=== PATIENT | male | born 1965 | race Caucasian/White ===

== ENCOUNTER 2019-08-06 13:36 | Inpatient (IN) | payer OTHER ==
[2019-08-06] MEDS ORDERED: SODIUM CHLORIDE 0.9% 1,000 ML IV STA (13:43)
[2019-08-06] MEDS ORDERED: HEPARIN SODIUM,PORCINE 5,000 UNIT/ML 1 ML VIAL IV STA (13:43)
--- NOTE | 2019-08-06 13:47 | ED ---
General Adult HPI - General Chief complaint: Chest Pain Stated complaint: Chest Pain Time Seen by Provider: 08/06/19 13:43 Source: patient, EMS Mode of arrival: EMS Limitations: no limitations - History of Present Illness Initial comments: Dictation was produced using [employer] dictation software. please excuse any grammatical, word or spelling errors. This patient was cared for during a federal and state declared state of emergency secondary to Covid 19 Chief Complaint: 54-year-old male presents with chest pain History of Present Illness: 54-year-old male past INR and a half prior to arrival he began experiencing substernal chest pressure. States that the pain radiated to his jaw. He didn't experience diaphoresis. Physical episodes of syncope. EMS was called and patient is brought to the emergency department. According to EMS EKG is consistent with ST segment elevation IN. Patient has a history of IN and cardiac arrest several years ago. He does not have any cardiac risk factors except or strong family history. Patient was given nitroglycerin by EMS with slight improvement of symptoms. Denies any sharp pressure. Denies any noticing paresthesias to the arms or legs. The ROS documented in this emergency department record has been reviewed and confirmed by me. Those systems with pertinent positive or negative responses have been documented in the HPI. All other systems are other negative and/or noncontributory. PHYSICAL EXAM: General Impression: Alert and oriented x3, acute distress secondary to pain HEENT: Normocephalic atraumatic, extra-ocular movements intact, pupils equal and reactive to light bilaterally, mucous membranes moist. Cardiovascular: Heart regular rate and rhythm Chest: Able to complete full sentences, no retractions, no tachypnea Abdomen: abdomen soft, non-tender, non-distended, no organomegaly Musculoskeletal: Pulses present and equal in all extremities, no peripheral edema Motor: no focal deficits noted Neurological: CN II-XII grossly intact, no focal motor or sensory deficits noted Skin: Intact with no visualized rashes, clammy Psych: Normal affect and mood ED course: 54-year-old male with chief complaint of chest pain. Prehospital EKG was reviewed by myself showing ST segment elevation IN inferiorly. Signs upon arrival shows heart rate of 101, pulse vital signs within acceptable limits. Code STEMI paged. Cardiology at bedside. Patient be admitted to Dr. Galeas who is on city call. 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 Interval to 22, QRS 90, QTC 414. ST segment elevation IN inferiorly with reciprocal changes in the high lateral leads and anterior precordial leads - Related Data Allergies Allergy/AdvReac Type Severity Reaction Status Date / Time Penicillins Allergy Swelling Verified 08/06/19 13:44 Review of Systems ROS Statement: Those systems with pertinent positive or pertinent negative responses have been documented in the HPI. ROS Other: All systems not noted in ROS Statement are negative. Past Medical History Past Medical History: Coronary Artery Disease (CAD), Myocardial Infarction (IN) History of Any Multi-Drug Resistant Organisms: None Reported Past Surgical History: Coronary Bypass/CABG, Heart Catheterization, Heart Catheterization With Stent Past Psychological History: No Psychological Hx Reported Smoking Status: Never smoker Past Alcohol Use History: Rare Past Drug Use History: None Reported General Exam Limitations: no limitations Course Vital Signs 08/06/19 13:37 Temperature 97.7 F Pulse Rate 101 H Respiratory 18 Rate Blood Pressure 129/95 O2 Sat by Pulse 100 Oximetry Disposition Clinical Impression: STEMI (ST elevation myocardial infarction) Disposition: ADMITTED IP TO THIS HOSP Condition: Critical Referrals: Nonstaff,Physician [Primary Care Provider] - 1-2 days Decision Time: 13:51
[2019-08-06] MEDS ORDERED: NALOXONE 0.4 MG/ML 1 ML VIAL IV PRN (13:51)
[2019-08-06] MEDS ORDERED: IV FLUID CONTINUATION 900 ML IV ONE (13:53)
[2019-08-06] MEDS ORDERED: MIDAZOLAM 2 MG/2 ML VIAL IVP ONE (13:59)
--- NOTE | 2019-08-06 14:00 | XR ---
EXAMINATION TYPE: XR chest 1V portable DATE OF EXAM: 08/06/2019 COMPARISON: NONE HISTORY: Chest pain today. TECHNIQUE: Single AP portable frontal semiupright view of the chest is obtained. FINDINGS: Overlying EKG leads. There is no focal air space opacity, pleural effusion, or pneumothorax seen. Overlying sternal wires and mediastinal clips along with epicardial pacer wires. The cardiac s ilhouette size is within normal limits. The osseous structures are intact. IMPRESSION: No acute process.
[2019-08-06] MEDS ORDERED: LIDOCAINE 1% INJ 10MG/ML (20 ML MDV) SQ ONE (14:01)
[2019-08-06 14:20] LABS: Basophils # (A) 0.1 k/uL (0-0.2); Basophils % (A) 1 %; Eosinophils # (A) 0.1 k/uL (0-0.7); Eosinophils % (A) 1 %; HCT 43.8 % (39.0-53.0); HGB 13.8 gm/dL (13.0-17.5); Lymphocytes # (A) 2.2 k/uL (1.0-4.8); Lymphocytes % (A) 16 %; MCH 27.1 pg (25.0-35.0); MCHC 31.5 g/dL (31.0-37.0); MCV 86.2 fL (80.0-100.0); Mean Platelet Volume 6.7; Monocytes # (A) 0.5 k/uL (0-1.0); Monocytes % (A) 4 %; Neutrophils # (A) 10.2 k/uL (1.3-7.7); Neutrophils % (A) 77 %; Platelet Count 405 k/uL (150-450); RBC 5.08 m/uL (4.30-5.90); RDW 13.3 % (11.5-15.5); WBC 13.3 k/uL (3.8-10.6)
[2019-08-06] MEDS ORDERED: fentaNYL (PF) 50 MCG/ML 2 ML AMP ONE (14:21)
[2019-08-06] MEDS ORDERED: fentaNYL (PF) 50 MCG/ML 2 ML AMP IVP ONE (14:22)
[2019-08-06] MEDS ORDERED: HEPARIN SODIUM 1,000 UN/ML (10ML VL) ONE ×2 (14:26→15:08)
[2019-08-06] MEDS: HEPARIN SODIUM 1,000 UN/ML (10ML VL) IV ONE ×2 (14:28→14:46)
[2019-08-06] MEDS ORDERED: TIROFIBAN BOLUS 12.5MG/250 ML BAG IV ONE (14:32)
[2019-08-06] MEDS ORDERED: TIROFIBAN 12.5MG-250ML NS 250 ML IV ONE (14:33)
[2019-08-06] MEDS ORDERED: CLOPIDOGREL 75 MG TAB ONE ×2 (14:36)
[2019-08-06 14:37] LABS: Partial Thromboplastin Time 22.7 sec (22.0-30.0); Prothrombin Time 10.6 sec (9.0-12.0)
[2019-08-06 14:39] LABS: ALT 24 U/L (4-49); AST 36 U/L (17-59); African American GFR (CKD) >90 (>60 ml/min/1.73 sqM); Alkaline Phosphatase 80 U/L (38-126); Anion Gap 14 mmol/L; Blood Urea Nitrogen 19 mg/dL (9-20); Calcium 9.9 mg/dL (8.4-10.2); Carbon Dioxide 16 mmol/L (22-30); Chloride 107 mmol/L (98-107); Glucose 176 mg/dL (74-99); Non-African American GFR(CKD) 81 (>60 ml/min/1.73 sqM); Potassium 4.7 mmol/L (3.5-5.1); Sodium 137 mmol/L (137-145); Total Bilirubin 0.6 mg/dL (0.2-1.3); Total Protein 7.7 g/dL (6.3-8.2)
[2019-08-06] MEDS ORDERED: SODIUM CHLORIDE 0.9% 1,000 ML IV ONE ×2 (14:40→14:43)
[2019-08-06] MEDS ORDERED: CLOPIDOGREL 75 MG TAB PO ONE (14:41)
[2019-08-06] MEDS ORDERED: DOPamine DRIP 800 MG in DEXTROSE/WATER 1 250ML.BAG IV ONE (14:43)
[2019-08-06] MEDS ORDERED: HYDROmorphone 1 MG/ML 1 ML SYRINGE ONE (14:45)
[2019-08-06] MEDS ORDERED: HYDROmorphone 1 MG/ML 1 ML SYRINGE IVP ONE (14:46)
[2019-08-06] MEDS ORDERED: IOPAMIDOL-370 125ML BTL INJ ONE (14:53)
[2019-08-06] MEDS ORDERED: NITROGLYCERIN 1000MCG/10ML SYRINGE INTRACORON ONE (14:58)
[2019-08-06] MEDS ORDERED: IOPAMIDOL-370 100ML BTL INJ ONE (15:02)
[2019-08-06 15:26] LABS: Glucose,Whole Blood 120 mg/dL (75-99)
[2019-08-06] MEDS ORDERED: TIROFIBAN 12.5MG-250ML NS 250 ML IV SCH (15:45)
[2019-08-06] MEDS: HEPARIN SOD,PORK IN 0.45% NACL 25,000 UNIT in 0.45% NACL 1 250ML.BAG IV SCH (16:21)
[2019-08-06] MEDS: SODIUM CHLORIDE 0.9% 1,000 ML IV SCH (16:28)
[2019-08-06] MEDS ORDERED: ATROPINE SULFATE 0.1 MG/ML 10ML SYRINGE ONE (17:46)
--- NOTE | 2019-08-06 18:37 | CONS ---
CONSULTATION CHIEF COMPLAINT: Sudden onset chest pain. Mr. 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 He came to the ER where his EKG showed acute ST-segment elevation in the inferior leads with ST-segment depression in the precordial leads suggestive of an acute inferoposterior wall myocardial infarction. I evaluated him in the ER and advised him to undergo emergent cardiac catheterization with a view to performing angioplasty. He was explained of risks, benefits. PAST MEDICAL HISTORY: Significant for CAD, status post CABG, psoriasis. MEDICATIONS: He is on Otezla. ALLERGIES: Denies any. FAMILY HISTORY: Negative for premature coronary artery disease. SOCIAL HISTORY: Denies smoking or ETOH abuse. REVIEW OF SYSTEMS: HEENT is unremarkable. CARDIAC as described above. RESPIRATORY as described above. GI negative. negative. ENDOCRINE negative. ALLERGY: Negative. SKIN significant for psoriasis. MUSCULOSKELETAL negative. ENDOCRINE negative. DERM: Negative. CONSTITUTIONAL: Negative. ONCOLOGICAL: Negative MILLWRIGHT negative. Rest of the system review is not relevant. EXAM: Comfortable at rest. Vital signs are stable. There is no jugular venous distention. Carotid upstroke is normal. There is no bruit. Chest exam reveals good air entry bilaterally. Heart exam reveals first and second heart sounds. No gallop. No murmur. Abdomen is soft, nontender. Exam of extremities did not reveal any edema. Peripheral pulses are felt. MILLWRIGHT exam did not reveal focal neurological deficits. Labs are pending. ASSESSMENT: 1. Acute inferior posterior wall myocardial infarction. 2. Coronary artery disease, status post coronary artery bypass grafting. PLAN: Patient will undergo emergent cardiac catheterization with a view to performing angioplasty. MMODL / IJN: [id number] /
--- NOTE | 2019-08-06 18:52 | CC ---
CARDIAC CATHETERIZATION REPORT INDICATION: Acute inferior wall myocardial infarction. PROCEDURE NOTE: After obtaining informed consent, left heart catheterization, coronary angiogram, selective injection of the GIRON was performed via the right femoral artery. The patient tolerated the procedure well without any obvious immediate complications. The patient was intermittently developing high-grade AV block prior to catheterization but was hemodynamically stable throughout. FINDINGS: HEMODYNAMICS: Left ventricular end-diastolic pressure was 12 mm. There is no significant gradient across the aortic valve. LEFT VENTRICULOGRAM: Left ventriculogram is not performed. ANGIOGRAPHIC DATA: LEFT MAIN CORONARY ARTERY: Left main coronary artery is a normal-sized vessel and is free of stenosis. Divides into left anterior descending coronary artery and circumflex coronary artery. LEFT ANTERIOR DESCENDING CORONARY ARTERY: LAD is chronically occluded in its midportion. The diagonal branch shows a 70-80 percent ostial stenosis. CIRCUMFLEX CORONARY ARTERY: Circumflex coronary artery gives off a high OM branch that has a 70% to 80% stenosis in the proximal part. RIGHT CORONARY ARTERY: Right coronary artery is totally occluded distally just past the previously stented segment. SELECTIVE INJECTION OF THE GIRON: GIRON to the LAD appears patent. Proximal distal anastomotic sites are free of disease and the [place] LAD is free of disease. CONCLUSIONS: 1. Acute occlusion of the right coronary artery just distal to the previously stented segment. 2. Patent GIRON to LAD. 3. Three-vessel coronary artery disease as described above. PLAN: Patient will undergo angioplasty of the right coronary artery. MMODL / IJN: [id number] /
--- NOTE | 2019-08-06 19:33 | PTCA ---
PERCUTANEOUSTRANS CORORONARY ANGIOGRAPHY DATE OF SERVICE: 08/06/2019. PROCEDURE PERFORMED: PTCA and stenting of a totally occluded mid RCA with drug-eluting stents performed in the setting of an acute inferior ST-elevation myocardial infarction with reperfusion accomplished within 55 minutes. PERFORMED BY: Dr. Kianna Tidwell. SEDATION: Moderate conscious sedation time was 37 minutes. Patient was administered Versed. Oxygen saturation, hemodynamics and EKG were monitored closely. CLINICAL INFORMATION: Mr. 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 He came in with an acute inferior SC, was seen by Dr. Silverio who performed the cardiac cath from right femoral approach. This gentleman had a previous bypass surgery and stenting of RCA. Stenting of RCA was performed in 2012. The bypass surgery details are unavailable. He underwent a cardiac cath which revealed total occlusion of the RCA just beyond the stented segment. The stent in the RCA was there from the proximal all the way to the midportion. The left system revealed significant stenosis involving the ramus of more than 80% which was a long stenosis starting from the ostium all the way distally. This was in the ramus intermedius. Circumflex was a small vessel. RCA is a dominant vessel. The LAD was totally occluded in the midportion and GIRON to LAD was patent. He was advised intervention of the RCA that was performed expeditiously. PROCEDURE NOTE: The existing 6-Sinhala introducer in the right femoral artery was used to perform procedure. I used a standard right Mabel guide catheter to cannulate the right coronary artery. A whisper wire with a straight tip was used to cross the lesion. I used a 2.5 caliber 15 mm trek balloon and I pre-dilated the total occlusion with improvement of angiographic appearance and flow. Patient had transient bradycardia. I started him on a small dose of dopamine. Following this, I tried to advance a 33 mm long 3.25 caliber Xience stent into the distal and mid RCA up to the bifurcation, but I could not advance the stent. I then used a 3.25 caliber 15 mm NC Trek balloon and dilated within the previous stent at the bend and then after this, I was able to advance a 33 mm long 3.25 caliber Xience stent. The distal end of the stent was deployed at the bifurcation of the RCA distally and the proximal end of the stent was just before the previously placed stent. In between the stented areas, I deployed another 3.25 caliber 8 mm Xience stent. The entire old stent was also dilated with a 3.25 caliber balloon. Excellent angiographic result without complication was achieved. Patient had chest pain and inferior ST elevation with inflations. He received 600 mg of Plavix and also received heparin and Aggrastat infusion. ACT was about 258. The sheath was sutured and he was sent to the room in a stable condition with the understanding the sheath will be pulled in 2 hours. Excellent results were achieved. No complications. 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 Results were discussed with the patient. No family was available. I will perform intervention of the ramus intermedius which is a significant disease and a more significant caliber and distribution vessel and this will be performed in 48 hours. Details of the findings and results were discussed with the patient and he was sent to the room in stable condition. MMODL / IJN: [id number] /
[2019-08-06] MEDS: METOPROLOL TARTRATE 12.5 MG TAB PO SCH (21:02)
[2019-08-06] MEDS: ATORVASTATIN 80 MG TAB PO SCH (21:02)
[2019-08-06] MEDS: FAMOTIDINE 20 MG TAB PO SCH (21:02)
[2019-08-06] MEDS: LISINOPRIL 2.5 MG TAB PO SCH (21:02)
[2019-08-07 05:52] LABS: Basophils % (A) 0 %; Eosinophils # (A) 0.1 k/uL (0-0.7); Eosinophils % (A) 1 %; HCT 40.4 % (39.0-53.0); HGB 13.4 gm/dL (13.0-17.5); Lymphocytes # (A) 1.3 k/uL (1.0-4.8); Lymphocytes % (A) 13 %; MCH 28.8 pg (25.0-35.0); MCHC 33.1 g/dL (31.0-37.0); MCV 87.1 fL (80.0-100.0); Mean Platelet Volume 6.5; Monocytes # (A) 0.5 k/uL (0-1.0); Monocytes % (A) 5 %; Neutrophils # (A) 8.3 k/uL (1.3-7.7); Neutrophils % (A) 81 %; Platelet Count 321 k/uL (150-450); RBC 4.63 m/uL (4.30-5.90); RDW 13.8 % (11.5-15.5); WBC 10.3 k/uL (3.8-10.6)
[2019-08-07] MEDS: SODIUM CHLORIDE 0.9% 1,000 ML IV SCH (05:53)
[2019-08-07 06:20] LABS: African American GFR (CKD) >90 (>60 ml/min/1.73 sqM); Anion Gap 6 mmol/L; Blood Urea Nitrogen 13 mg/dL (9-20); Calcium 8.7 mg/dL (8.4-10.2); Carbon Dioxide 21 mmol/L (22-30); Chloride 111 mmol/L (98-107); Glucose 91 mg/dL (74-99); Non-African American GFR(CKD) >90 (>60 ml/min/1.73 sqM); Sodium 138 mmol/L (137-145)
[2019-08-07 06:33] LABS: Potassium 5.2 mmol/L (3.5-5.1)
[2019-08-07] MEDS: ASPIRIN 81 MG PO SCH (07:43)
[2019-08-07] MEDS: METOPROLOL TARTRATE 12.5 MG TAB PO SCH ×2 (07:43→20:14)
[2019-08-07] MEDS: CLOPIDOGREL 75 MG TAB PO SCH (07:43)
--- NOTE | 2019-08-07 12:00 | ECHOF ---
Referral Reason:s/p stemi MEASUREMENTS -------- HEIGHT: 177.8 cm WEIGHT: 80.3 kg BP: 112/76 RVIDd: 3.7 cm (< 3.3) IVSd: 1.4 cm (0.6 - 1.1) LVIDd: 4.3 cm (3.9 - 5.3) LVPWd: 1.6 cm (0.6 - 1.1) IVSs: 1.8 cm LVIDs: 3.4 cm LVPWs: 1.9 cm LAESV Index (A-L): 36.52 ml/m Ao Diam: 3.3 cm (2.0 - 3.7) AV Cusp: 2.5 cm (1.5 - 2.6) MV EXCURSION: 19.089 mm (> 18.000) MV EF SLOPE: 194 mm/s (70 - 150) MV E David: 0.69 m/s MV DecT: 174 ms MV A David: 0.61 m/s MV E/A Ratio: 1.14 RAP: 5.00 mmHg RVSP: 27.14 mmHg FINDINGS -------- Sinus rhythm. This was a technically good study. The left ventricular size is normal. There is moderate concentric left ventricular hypertrophy. O verall left ventricular systolic function is mildly impaired with, an EF between 45 - 50 %. Mitral Doppler inflow pattern suggests diastolic filling abnormality 10.39. Basal inferior LV wall motion is hypokinetic. Mid inferior LV wall motion is hypokinetic. The right ventricle is mild to moderately enlarged. Paradoxical motion of the right ventricular sep noe is consistent with post operative status. LA is moderately dilated 34-39 ml/m2 The right atrial size is normal. Interatrial and interventricular septum intact. The aortic valve is trileaflet and appears structurally normal. There is no evidence of aortic regu rgitation. There is no evidence of aortic stenosis. Tcru-sb-dybopchm mitral regurgitation is present. Mild tricuspid regurgitation present. There is no evidence of pulmonary hypertension. The right v entricular systolic pressure, as measured by Doppler, is 27.14mmHg. There is no pulmonic regurgitation present. The aortic root size is normal. IVC Not well visulized. There is no pericardial effusion. CONCLUSIONS -------- 1. Sinus rhythm. 2. This was a technically good study. 3. The left ventricular size is normal. 4. There is moderate concentric left ventricular hypertrophy. 5. Overall left ventricular systolic function is mildly impaired with, an EF between 45 - 50 %. 6. Mitral Doppler inflow pattern suggest diastolic filling abnormality 10.39. 7. Basal inferior LV wall motion is hypokinetic. 8. Mid inferior LV wall motion is hypokinetic. 9. The right ventricle is mild to moderately enlarged. 10. Paradoxical motion of the right ventricular septum is consistent with post operative status. 11. LA is moderately dilated 34-39 ml/m2 12. The right atrial size is normal. 13. Interatrial and interventricular septum intact. 14. The aortic valve is trileaflet and appears structurally normal. 15. There is no evidence of aortic regurgitation. 16. There is no evidence of aortic stenosis. 17. Alfl-qi-uioygtbh mitral regurgitation is present. 18. Mild tricuspid regurgitation present. 19. There is no evidence of pulmonary hypertension. 20. The right ventricular systolic pressure, as measured by Doppler, is 27.14mmHg. 21. There is no pulmonic regurgitation present. 22. The aortic root size is normal. 23. IVC Not well visulized. 24. There is no pericardial effusion. LIVING SKILLS ADVISOR: Jeni Kelly RDCS
[2019-08-07] MEDS ORDERED: NITROGLYCERIN SL TABS 0.4 MG TAB SUBLINGUAL PRN (12:58)
[2019-08-07] MEDS ORDERED: ATORVASTATIN 20 MG TAB PO SCH (13:00)
[2019-08-07] MEDS: HEPARIN SOD,PORK IN 0.45% NACL 25,000 UNIT in 0.45% NACL 1 250ML.BAG IV SCH (15:04)
[2019-08-07] MEDS: PANTOPRAZOLE 40 MG TABLET PO SCH (15:04)
--- NOTE | 2019-08-07 17:23 | HP ---
HISTORY AND PHYSICAL DATE OF ADMISSION: 08/06/2019 CHIEF COMPLAINT: Chest pain. HISTORY OF PRESENT ILLNESS: This is the first known admission for this 54-year-old white male. He presented to the emergency room with chest pain and was taken straight to the [facility]. He was found to have an acute NM. Stent was placed. Apparently, it is planned that he will be going back tomorrow for another stent. He had a myocardial infarction with one stent placed in 2012. 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 He has not been taking any medications except for Otezla for his psoriasis. He stated that he "did not need his cardiac medications anymore because he was living a very healthy lifestyle and was exercising and eating well." REVIEW OF SYSTEMS: He denies any neurologic problems, syncope, difficulty with the vision or the hearing, hemoptysis, lung disease, asthma, murmurs, rheumatic fever, orthopnea, PND, abdominal pain, nausea, vomiting, hematemesis, melena, hematochezia, jaundice, hepatitis, cirrhosis, hematuria, dysuria, frequency, urgency, renal failure, diabetes, etc. He does not know about his lipids. At the time of this event he was he was short of breath and actually passed out. He is also clammy. Past medical history, family history, personal and social history revealed he is allergic to PENICILLIN and he is only on Otezla. Surgically, he has had a procedure on his shoulder, a knee and appendectomy in addition to the stent. He does not smoke and he does not drink alcohol. He has a negative family history. PHYSICAL EXAMINATION: Blood pressure is 136/82 with a pulse of 71, respirations of 19, he is afebrile. In general, he appeared to be well developed, well nourished, in no acute distress. Skin color is normal, skin is warm, dry. Lymph nodes are not enlarged. Head, ears, eyes, nose, mouth and throat were normal. Neck veins not distended. Thyroid not enlarged. Chest is clear. Cardiac exam is normal sinus rhythm and no murmurs or extra sounds. Abdomen is soft, nontender without visceromegaly or masses. Bowel sounds present extremities are normal and neurologically he is intact. IMPRESSION: 1. Acute myocardial infarction. 2. Coronary artery disease. 3. Previous myocardial infarction. 4. Psoriasis. PLAN: He has already undergone a cardiac cath and stent placement and he will be followed until he is stable enough to go home or have his second procedure while he is an inpatient. NORMA / LUBNA: [id number] /
--- NOTE | 2019-08-07 17:23 | PN ---
PROGRESS NOTE DATE OF SERVICE: 08/07/2019 CHIEF COMPLAINT: Acute myocardial infarction. HISTORY OF PRESENT ILLNESS: This gentleman is doing well and he has had practically no pain. He has had no palpitations or arrhythmias, and he is not short of breath. PHYSICAL EXAMINATION: Color is good. Chest is clear. VITAL SIGNS: Normal. Cardiac exam is normal and the abdomen is soft, nontender. IMPRESSION: 1. Status post myocardial infarction. 2. Old myocardial infarction. 3. Coronary artery disease. 4. Psoriasis. PLAN: He is having a second stent setting tomorrow. MMODL / IJN: [id number] /
--- NOTE | 2019-08-07 19:29 | PN ---
PROGRESS NOTE A 54-year-old gentleman is admitted to hospital with acute inferior wall myocardial infarction. Underwent emergent cardiac catheterization by me that revealed occluded right coronary artery for which he underwent angioplasty. He is doing well and is free of symptoms this morning. Echocardiogram shows an ejection fraction of 45%. Right ventricle is enlarged. There is mild to moderate mitral regurgitation noted. Current medications include aspirin, Lipitor, Plavix, Zestril, and Lopressor. On exam, comfortable at rest. Vital signs are stable. Chest exam reveals good air entry bilaterally. Heart exam reveals first and second heart sounds. No gallop. Abdomen is soft. Exam of extremities did not reveal any edema. Peripheral pulses are felt. Groin is free of bleeding, bruit or hematoma. ASSESSMENT: Acute inferior wall myocardial infarction status post catheterization and angioplasty of right coronary artery. The patient is on optimal medical therapy and will undergo angioplasty of the [place] circumflex coronary artery. MMODL / IJN: [id number] /
[2019-08-07] MEDS: ATORVASTATIN 80 MG TAB PO SCH (20:14)
[2019-08-07] MEDS: LISINOPRIL 2.5 MG TAB PO SCH (20:15)
[2019-08-07] MEDS: FAMOTIDINE 20 MG TAB PO SCH (20:15)
[2019-08-08 05:44] LABS: Basophils % (A) 0 %; Eosinophils # (A) 0.2 k/uL (0-0.7); Eosinophils % (A) 2 %; HGB 13.9 gm/dL (13.0-17.5); Lymphocytes # (A) 1.4 k/uL (1.0-4.8); Lymphocytes % (A) 14 %; MCH 28.6 pg (25.0-35.0); MCV 86.6 fL (80.0-100.0); Mean Platelet Volume 6.5; Monocytes # (A) 0.5 k/uL (0-1.0); Monocytes % (A) 5 %; Neutrophils # (A) 7.5 k/uL (1.3-7.7); Neutrophils % (A) 78 %; Platelet Count 289 k/uL (150-450); RBC 4.85 m/uL (4.30-5.90); RDW 13.3 % (11.5-15.5); WBC 9.7 k/uL (3.8-10.6)
[2019-08-08 05:57] LABS: African American GFR (CKD) >90 (>60 ml/min/1.73 sqM); Anion Gap 4 mmol/L; Blood Urea Nitrogen 13 mg/dL (9-20); Calcium 9.3 mg/dL (8.4-10.2); Carbon Dioxide 26 mmol/L (22-30); Chloride 106 mmol/L (98-107); Glucose 89 mg/dL (74-99); Non-African American GFR(CKD) >90 (>60 ml/min/1.73 sqM); Potassium 5.3 mmol/L (3.5-5.1); Sodium 136 mmol/L (137-145)
[2019-08-08] MEDS: PANTOPRAZOLE 40 MG TABLET PO SCH (06:14)
[2019-08-08] MEDS ORDERED: LIDOCAINE 1% INJ 10MG/ML (20 ML MDV) ONE (07:33)
[2019-08-08] MEDS ORDERED: CLOPIDOGREL 75 MG TAB ONE ×2 (07:36→08:46)
[2019-08-08] MEDS ORDERED: ASPIRIN 325 MG TAB ONE (07:36)
[2019-08-08] MEDS ORDERED: VERAPAMIL 2.5 MG/ML 2 ML AMP ONE (07:44)
[2019-08-08] MEDS ORDERED: SODIUM CHLORIDE 0.9% 1,000 ML IV ONE (07:45)
[2019-08-08] MEDS ORDERED: MIDAZOLAM 2 MG/2 ML VIAL IVP ONE (07:45)
[2019-08-08] MEDS: LIDOCAINE 1% INJ 10MG/ML (20 ML MDV) SQ ONE ×2 (07:49→08:05)
[2019-08-08] MEDS ORDERED: VERAPAMIL SYRINGE (5 MG/10 ML) INTRAARTER ONE (07:50)
[2019-08-08] MEDS ORDERED: HYDROmorphone 1 MG/ML 1 ML SYRINGE ONE ×2 (08:04→08:43)
[2019-08-08] MEDS: HYDROmorphone 1 MG/ML 1 ML SYRINGE IVP ONE ×2 (08:06→08:12)
[2019-08-08] MEDS ORDERED: BIVALIRUDIN BOLUS 250 MG/50 ML IV ONE (08:16)
[2019-08-08] MEDS ORDERED: BIVALIRUDIN 250 MG in SODIUM CHLORIDE 0.9% 50 ML IV ONE (08:17)
[2019-08-08] MEDS ORDERED: IOPAMIDOL-370 100ML BTL INJ ONE ×2 (08:32→08:43)
[2019-08-08] MEDS ORDERED: NITROGLYCERIN 1000MCG/10ML SYRINGE INTRACORON ONE (08:40)
[2019-08-08] MEDS ORDERED: HYDROmorphone 1 MG/ML 1 ML SYRINGE IVP ONE (08:45)
[2019-08-08] MEDS: CLOPIDOGREL 75 MG TAB PO SCH (08:53)
[2019-08-08] MEDS: ASPIRIN 81 MG PO SCH (08:53)
[2019-08-08] MEDS: METOPROLOL TARTRATE 25 MG TAB PO SCH ×2 (09:32→20:16)
[2019-08-08] MEDS: SODIUM CHLORIDE 0.9% 1,000 ML IV SCH (09:33)
[2019-08-08] MEDS: HEPARIN SOD,PORK IN 0.45% NACL 25,000 UNIT in 0.45% NACL 1 250ML.BAG IV SCH (14:45)
--- NOTE | 2019-08-08 15:35 | PTCA ---
PERCUTANEOUSTRANS CORORONARY ANGIOGRAPHY DATE OF SERVICE: 08/08/2019. PROCEDURE: 1. Selective coronary angiography of right coronary artery. 2. PTCA and stenting of ostial/proximal ramus intermedius branch of the left coronary artery with a drug-eluting stent. PERFORMED BY: Dr. Kianna Tidwell. Moderate conscious sedation time was 64 minutes. Patient was administered Versed, Dilaudid. Oxygen saturation, hemodynamics and EKG were monitored closely. CLINICAL INFORMATION: Mr. Kemar Barnhart is a 54-year-old gentleman with history of known CAD, bypass surgery performed several years ago and stenting of RCA initially in 2012. 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 Silverio. Cardiac cath at that time revealed a total occlusion of RCA just beyond the stented segment. I performed intervention of the RCA from the right femoral approach with an excellent result. He is being brought in because of a 95% ostial/proximal ramus intermedius disease which was quite significant. Risks, benefits, options, rationale were discussed with the patient. PROCEDURE NOTE: Under local anesthesia and strict aseptic precautions, a 6-Bermudian introducer was placed in the right radial artery. There was extreme tortuosity with a bovine arch. However, I was able to cannulate the right coronary artery with a standard right Mabel catheter, and I performed selective coronary angiography of this vessel. RCA was widely patent with remarkably good flow without any restenosis. I then tried to advance a 6-Bermudian to 3.5 left guide catheter but I had a lot of difficulty because of extreme tortuosity and after some deliberation, I switched over to the right femoral approach. Under local anesthesia and strict aseptic precautions, a 6-Bermudian introducer was placed in the right femoral artery. A JL3.5 guide catheter was used to cannulate the left coronary artery and a run-through wire was used to cross the lesion, wire was kept distally. Patient was initiated on Angiomax bolus and infusion. He received aspirin and Plavix this morning. I performed predilatation with a 2.5 caliber 12 mm NC Trek balloon. Following this, I tried to advance a 3.0 caliber Xience stent, but I had a lot of difficulty because of the angulation at the ostium of the ramus and also calcification at the distal left main as well. After some deliberation, I decided to switch over to an Saroj balloon with a 2.0 caliber 12 mm Darragh balloon was positioned at the ostium of the ramus as it came off from the left main/circumflex and the distal end of the on extent was well into the ramus branch. This was deployed at 14 atmospheres. Patient had chest pain and mild jaw discomfort without EKG changes. I then went with a 3.0 caliber 12 mm NC Trek balloon and post dilated it for 45 seconds at 14 atmospheres. Excellent angiographic result was achieved. Right at the ostium of the ramus, there was a circumflex coming down and this was not hampered in any way. The blood flow was excellent in both circumflex and ramus. Excellent angiographic result was achieved. The sheath was taken out and Angio-Seal device used to secure hemostasis and he was sent to the room in a stable condition. The TR band was then applied to the right radial site. The saturation the fingers of the right hand was 95%. The patient tolerated procedure well. Excellent angiographic results for the result were achieved. He received additional 225 mg of Plavix. Results were discussed with the patient. No family was available. I expect he will be discharged in the next 24 to 48 hours. The patient should continue on aspirin, Plavix and all his current medical regimen. Will increase the metoprolol tartrate to 25 mg b.i.d., obtain EKG in the morning and CBC and BMP in the morning. MMODL / IJN: [id number] /
--- NOTE | 2019-08-08 17:26 | PN ---
PROGRESS NOTE CHIEF COMPLAINT: Acute myocardial infarction. HISTORY OF PRESENT ILLNESS: This gentleman is doing well and he is going down here for his second stent today. He has had no problems. PHYSICAL EXAMINATION: Chest is clear. Cardiac exam is normal. Abdomen is soft, nontender and he has had no arrhythmias and his vital signs are normal. IMPRESSION: Acute myocardial infarction. PLAN: Second cardiac cath and stent today. MMODL / IJN: [id number] /
[2019-08-08] MEDS: ATORVASTATIN 80 MG TAB PO SCH (20:16)
[2019-08-08] MEDS: LISINOPRIL 2.5 MG TAB PO SCH (20:16)
[2019-08-08] MEDS: FAMOTIDINE 20 MG TAB PO SCH (20:16)
[2019-08-09] MEDS: SODIUM CHLORIDE 0.9% 1,000 ML IV SCH (00:22)
[2019-08-09 05:07] LABS: Basophils # (A) 0.1 k/uL (0-0.2); Basophils % (A) 0 %; Eosinophils # (A) 0.2 k/uL (0-0.7); Eosinophils % (A) 1 %; HCT 41.3 % (39.0-53.0); HGB 13.3 gm/dL (13.0-17.5); Lymphocytes # (A) 1.9 k/uL (1.0-4.8); Lymphocytes % (A) 16 %; MCH 27.8 pg (25.0-35.0); MCHC 32.2 g/dL (31.0-37.0); MCV 86.3 fL (80.0-100.0); Mean Platelet Volume 6.4; Monocytes # (A) 0.7 k/uL (0-1.0); Monocytes % (A) 6 %; Neutrophils # (A) 8.5 k/uL (1.3-7.7); Neutrophils % (A) 75 %; Platelet Count 334 k/uL (150-450); RBC 4.78 m/uL (4.30-5.90); RDW 13.2 % (11.5-15.5); WBC 11.4 k/uL (3.8-10.6)
[2019-08-09 05:16] LABS: African American GFR (CKD) >90 (>60 ml/min/1.73 sqM); Anion Gap 6 mmol/L; Blood Urea Nitrogen 12 mg/dL (9-20); Calcium 8.9 mg/dL (8.4-10.2); Carbon Dioxide 24 mmol/L (22-30); Chloride 106 mmol/L (98-107); Glucose 90 mg/dL (74-99); Non-African American GFR(CKD) >90 (>60 ml/min/1.73 sqM); Potassium 5.7 mmol/L (3.5-5.1); Sodium 136 mmol/L (137-145)
[2019-08-09] MEDS: PANTOPRAZOLE 40 MG TABLET PO SCH (07:41)
[2019-08-09] MEDS: ASPIRIN 81 MG PO SCH (08:48)
[2019-08-09] MEDS: METOPROLOL TARTRATE 25 MG TAB PO SCH (08:48)
[2019-08-09] MEDS: CLOPIDOGREL 75 MG TAB PO SCH (08:48)
[2019-08-09] MEDS ORDERED: SODIUM POLYSTYRENE SULFONATE 15 GM/60 ML BOTTLE PO STA (13:38)
[2019-08-09] MEDS ORDERED: FUROSEMIDE 10 MG/ML 2 ML VIAL IV STA (13:47)
[2019-08-09] MEDS ORDERED: SODIUM CHLORIDE 0.9% 500 ML 250 ML IV ONE (14:08)
[2019-08-09] MEDS: HEPARIN SOD,PORK IN 0.45% NACL 25,000 UNIT in 0.45% NACL 1 250ML.BAG IV SCH (14:15)
[2019-08-09 16:05] VITALS: BP 115/83; PULSE 67; RESP 20
[2019-08-09 16:11] VITALS: TEMP 98.2
--- NOTE | 2019-08-09 23:19 | P.PN ---
Subjective 54-year-old male patient who underwent coronary stenting to the RCA as well as to the ostium of the intermedius branch for acute inferior wall IL ST elevation, staged interventions Anat reduced LV systolic function Patient is doing very well. No chest discomfort dizziness lightheadedness palpitations Vitals are stable Heart sounds are normal no murmurs or gallop. No JVD Abdomen soft Lungs are clear Today the potassium was 5.7 and therefore I gave him total 50 cc of saline along with IV Lasix 20 mg and Kayexalate His follow-up potassium was normal and below 5 This patient is from [place] and is waiting to leave for [place]. Now that his potass ium is normalized he may go home and follow-up with his gas transfer operator on Sunday He will take metoprolol dual antiplatelet therapy and statins Past him to hold off on FERDINAND inhibitor is until he sees his primary gas transfer operator and gets his potassium rechecked Objective - Vital Signs Vital signs: Vital Signs Temp 98.2 F 08/09/19 16:00 Pulse 67 08/09/19 16:00 Resp 20 08/09/19 16:00 BP 115/83 08/09/19 16:00 Pulse Ox 93 L 08/09/19 16:00 Intake & Output 08/09/19 08/09/19 08/10/19 06:59 18:59 06:59 Intake Total 900 650 Output Total 550 1500 Balance 350 -850 Weight 79.1 kg Intake: IV 825 150 Sodium Chloride 0.9% 1, 825 150 000 ml @ 75 mls/hr IV . [id number] [facility] Rx#:[id number] Intake, IV Titration 75 250 Amount Sodium Chloride 0.9% 1, 75 000 ml @ 75 mls/hr IV . [id number] [facility] Rx#:[id number] Sodium Chloride 0.9% 500 250 ml 250 ml @ 999 mls/hr IV .Q16M ONE Rx#:[id number] Oral 250 Output: Urine 550 1500 Other: Voiding Method Urinal Toilet Urinal # Bowel Movements 1 ABP, PAP, CO, CI - Last Documented Arterial Blood Pressure 130/68 - Labs CBC & Chem 7: 08/09/19 04:20 08/09/19 15:53 Labs: Abnormal Lab Results - Last 24 Hours (Table) 05/23/20 05/23/20 Range/Units 04:20 04:20 WBC 11.4 H (3.8-10.6) k/uL Neutrophils # 8.5 H (1.3-7.7) k/uL Sodium 136 L (137-145) mmol/L Potassium 5.7 H (3.5-5.1) mmol/L
--- NOTE | 2019-08-09 23:46 | DS ---
DISCHARGE SUMMARY CHIEF COMPLAINT: Chest pain. HISTORY OF PRESENT ILLNESS AND PHYSICAL EXAM: Details of this man's history and physical can be found in the initial workup. LABORATORY STUDIES: While he was in the hospital, he had laboratory studies, details of which can be found laboratory section of his chart. COURSE IN HOSPITAL: After admission, he was placed on bedrest and started on fluids and taken to the minilab operator. He had PCI and stenting of the right coronary artery. Postoperatively he did well. He was taken back 2 days later for a 2nd procedure on the left coronary. He did well and he had no further problems with chest pain, shortness of breath, arrhythmias, etc. It was felt that he could go home on the . He will go home on light activity, low-fat diet and medications prescribed by Cardiology. He lives out of the area. He will follow up with his own physician. FINAL DIAGNOSES: 1. Acute myocardial infarction. 2. Coronary artery disease. 3. Psoriasis. OPERATIONS: Cardiac cath and stenting in 2 sittings. CONSULTATION: Cardiology. He is improved. MMDARBY / LUBNA: [id number] /
== END 2019-08-09 16:40 | disposition home or self-care (01) | DRG 247 ==
LOC: EC 13:36 → 2SICU 13:51
PROVIDERS: ADMIT Family Medicine; ATTEND Family Medicine
PROC: B2181ZZ Fluoroscopy of Left Internal Mammary Bypass Graft using Low Osmolar Contrast (ICD-10-PCS; 2019-08-06)
PROC: 4A023N7 Measurement of Cardiac Sampling and Pressure, Left Heart, Percutaneous Approach (ICD-10-PCS; 2019-08-06)
PROC: B2111ZZ Fluoroscopy of Multiple Coronary Arteries using Low Osmolar Contrast (ICD-10-PCS; 2019-08-06)
PROC: 027035Z Dilation of Coronary Artery, One Artery with Two Drug-eluting Intraluminal Devices, Percutaneous Approach (ICD-10-PCS; principal; 2019-08-06 17:25)
PROC: 027034Z Dilation of Coronary Artery, One Artery with Drug-eluting Intraluminal Device, Percutaneous Approach (ICD-10-PCS; 2019-08-08)
DX: I21.19 ST elevation (STEMI) myocardial infarction involving other coronary artery of inferior wall (principal); E78.5 Hyperlipidemia, unspecified; I10 Essential (primary) hypertension; I25.2 Old myocardial infarction; I25.10 Atherosclerotic heart disease of native coronary artery without angina pectoris; I34.0 Nonrheumatic mitral (valve) insufficiency; I44.30 Unspecified atrioventricular block; L40.9 Psoriasis, unspecified; R55 Syncope and collapse; Z11.59 Encounter for screening for other viral diseases; Z79.82 Long term (current) use of aspirin; Z79.02 Long term (current) use of antithrombotics/antiplatelets; Z79.899 Other long term (current) drug therapy; Z86.74 Personal history of sudden cardiac arrest; Z95.1 Presence of aortocoronary bypass graft; Z95.5 Presence of coronary angioplasty implant and graft
CPT/HCPCS: 71045; 80048; 80053; 84132; 84484; 85025; 85610; 85730; 87635; 93005; 93306; 93459; 96374; 99285